=== PATIENT | female | born 1955 | race Caucasian/White ===

== ENCOUNTER → 2016-05-29 | Outpatient (CLI) | payer OTHER | END | disposition disaster alternative care site (69) | LOC: GRAD 09:47 | DX: R59.0 Localized enlarged lymph nodes (principal); F17.209 Nicotine dependence, unspecified, with unspecified nicotine-induced disorders; I70.0 Atherosclerosis of aorta; I70.8 Atherosclerosis of other arteries; M47.812 Spondylosis without myelopathy or radiculopathy, cervical region; I65.23 Occlusion and stenosis of bilateral carotid arteries; R91.8 Other nonspecific abnormal finding of lung field; R05 Cough; R10.12 Left upper quadrant pain; R79.89 Other specified abnormal findings of blood chemistry | CPT/HCPCS: Q9967 ==

== ENCOUNTER → 2016-08-18 | Outpatient (CLI) | payer OTHER ==
--- NOTE | ~2016-08-18 | ECHO ---
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 Summary The estimated left ventricular ejection fraction is > 75%. Moderate septal left ventricular hypertrophy. Normal right ventricle structure and function. Mild calcification of the mitral valve. Mild mitral regurgitation by color Doppler. The aortic valve is mildly sclerotic. There is mild aortic regurgitation by color Doppler. Mild tricuspid regurgitation by color Doppler. Procedure Type of Study TTE procedure:2D Echocardiogram. Procedure Date Date: 08/18/2016 Start: 11:01 AM Study Location: Inpatient Portable Technical Quality: Adequate visualization Indications:Palpitations. Appropriate Use Criteria: 9 Patient Status: Routine HR: 64 bpm BP: 109/55 mmHg M-Mode/2D Measurements LV Diastolic Dimension: 3.24 cm LV Systolic Dimension: 1.53 cm LV Septum Diastolic: 1.7 cm LV PW Diastolic: 1.39 cm AO Root Dimension: 2.2 cm Cardiac Output: 6.91 l/min AV Cusp Separation: 1.4 cm RV Diastolic Dimension: 2.65 cm LVOT: 2 cm LVOT VTI: 34.4 cm LV Stroke volume: 108.02 ml TDI-S': 15.9 cm/s Doppler Measurements AV Peak Velocity: 2.4 m/s MV Peak E-Wave: 0.95 m/s AV Peak Gradient: 23.04 mmHg MV Peak A-Wave: 0.83 m/s AV Mean Gradient: 15 mmHg MV E/A Ratio: 1.14 LVOT Peak Velocity: 1.54 m/s MV P1/2t: 87 msec TR Gradient:22.09 mmHg PV Peak Velocity: 1.38 m/s PV Peak Gradient: 7.62 mmHg Findings Left Ventricle Moderate septal left ventricular hypertrophy. Right Ventricle Normal right ventricle structure and function. Left Atrium Normal left atrial size. Right Atrium IVC measures 1.10 cm with inspiratory collapse. Mitral Valve Mild calcification of the mitral valve. Mild mitral regurgitation by color Doppler. Aortic Valve The aortic valve is mildly sclerotic. There is mild aortic regurgitation by color Doppler. Tricuspid Valve Mild tricuspid regurgitation by color Doppler. Pulmonic Valve Normal pulmonic valve structure and function. Pericardial Effusion No evidence of pericardial effusion. Miscellaneous Visualized portions of the aortic root and ascending aorta appear normal in size. Pleural Effusion No evidence of pleural effusion. Contractility Score LV regional wall motion:(0-Non visualized 1-Normal 2-Hypokinesis 3-Akinesis 4-Dyskinesis 5-Aneurysm) Signature dtt: MATILDA VAUGHAN dtd: 08/18/16 1105 Physician Self Edit
== END | disposition disaster alternative care site (69) ==
LOC: GCAR 10:39
DX: R00.2 Palpitations (principal); I51.7 Cardiomegaly; I34.0 Nonrheumatic mitral (valve) insufficiency; I35.1 Nonrheumatic aortic (valve) insufficiency; I35.8 Other nonrheumatic aortic valve disorders; I34.8 Other nonrheumatic mitral valve disorders; R07.89 Other chest pain; R06.02 Shortness of breath